=== PATIENT | female | born 1960 | race Caucasian/White ===

== ENCOUNTER 2021-01-14 14:10 | Emergency (ER) | payer MEDICARE, MEDICAID, SELFPAY ==
[2021-01-14 14:37] VITALS: BP 146/96; PULSE 75; RESP 18; TEMP 36.7; O2SAT 100; BMI 25.7
--- NOTE | 2021-01-14 15:45 | ED_ITS ---
HPI - Eye Problem General Chief complaint: Eye Problems Stated complaint: eye issue Time Seen by Provider: 01/14/21 15:45 History of Present Illness HPI Narrative: Patient noticed some redness in her right eye yesterday, there has been no injury no discharge from eye no change in vision no photophobia no loss of vision no pain in the eye Related Data Allergies Allergy/AdvReac Type Severity Reaction Status Date / Time penicillin G Allergy Rash Verified 01/14/21 14:36 Review of Systems Review of Systems: Positive for right eye redness Negatives are no fever no chills no dizziness no weakness no headache no ear pain no eye pain or vision change no vision loss no photophobia no discharge from high no skin rash Yes all other systems are reviewed and are negative [facility] Past Medical History Source: nursing notes reviewed Medical History (Updated 01/15/21 @ 00:01 by Background Daemon) Back pain Depression Migraine Thyroid activity decreased Social History Social History Advance Directives: No Advance Directives Information Provided: No Patient : No Physical Exam Vital Signs: Vital Signs: Last Vital Signs Temp 98.1 F 01/14/21 14:37 Pulse 75 01/14/21 14:37 Resp 18 01/14/21 14:37 BP 146/96 H 01/14/21 14:37 Pulse Ox 100 01/14/21 14:37 Body Mass Index 25.7 General appearance no acute distress Eye exam there is a right subconjunctival hemorrhage, pupils equal round reactive to light, extraocular motions intact, visual acuity is normal, staining with fluorescein did not reveal any dye uptake Pharynx is clear Neck is supple Respiratory no acute distress Extremities no rash Course Course Course Narrative: Patient with some painless redness in the sclera consistent with subconjunctival hemorrhage and no other complaint is advised usually no follow-up treatment needed but if she develops eye pain dozen loss photophobia any changed or worse condition could come back Discharge Plan Discharge Clinical Impression: Subconjunctival hemorrhage Patient Disposition: Home, Self-Care Additional Instructions: There is a small blood vessel in her eye that is superficial that leaked some blood and this will be absorbed on its own within 1-2 weeks and is not a new illness or any serious injury It gets better by itself and requires no treatment Return any change or worse condition Interventions: ED Discharge Assessment Last Done: 01/14/21 16:18 Discharge Date/Time: 01/14/21 16:15
[2021-01-14] MEDS: Fluorescein Sodium STRIP 1 STRIP EYE-LEFT (15:56)
== END 2021-01-14 16:15 | disposition home or self-care (01) ==
PROVIDERS: Emergency Provider Emergency Medicine
DX: H11.31 Conjunctival hemorrhage, right eye (principal)
CPT/HCPCS: 99283